=== PATIENT | male | born 1955 | race Asian ===

== ENCOUNTER 2017-06-06 18:24 | Emergency (ER) | payer SELFPAY ==
[~2017-06-06] VITALS: Ht 162.6 cm; Wt 73.3 kg
[2017-06-06 18:26] VITALS: Ht 162.6 cm; Wt 73.3 kg
[2017-06-06] MEDS ORDERED: ACETAMINOPHEN 500 MG TAB PO STA (19:12)
[2017-06-06] MEDS ORDERED: IBUPROFEN 600 MG TAB PO STA (19:12)
--- NOTE | 2017-06-06 19:12 | ERD ---
ER Documentation Chief Complaint Chief Complaint pt bib family with c/o fever and cough , feeling sob for a few days HPI this 61 yr male patient reports that he lives in [facility] and [facility], reports cough for 2 weeks intermitted and tactic fever starting today. pt denies night sweats, blood in sputum or contact with TB. pt has not had flu vaccines, denies hx of pulmonary disease . ROS All systems reviewed and are negative except as per history of present illness. Allergies Allergies: Coded Allergies: No Known Allergy (Unverified , 06/06/17) PMhx/Soc Medical and Surgical Hx: pt denies Medical Hx, pt denies Surgical Hx Hx Alcohol Use: No Hx Substance Use: No Hx Tobacco Use: No Smoking Status: Never smoker Physical Exam Vitals Vital Signs Date Time Temp Pulse Resp B/P Pulse Ox O2 Delivery O2 Flow Rate FiO2 06/06/17 19:53 103.4 100 17 100 Room Air 06/06/17 18:26 104.3 127 24 142/81 95 Physical Exam Const: Well-nourished well-hydrated well-appearing 61-year-old male patient obvious discomfort no acute distress temperature was 104 when triaged, 103 now. Eyes: Normal Conjunctiva, PERRLA, EOMI, no jaundice ENT: Lateral tympanic membranes are translucent, erythemic, without fluid level or bulging. Nasal mucosa is wet, erythemic, turbinates +2 with no mucus or bleeding points, pharynx is pink, uvula midline without shift, rises and falls with pronation, no exudate seen on tonsils, mucous membranes are moist. Neck: Full range of motion..~ No meningismus. Resp: Respirations even and unlabored, patient's oxygen saturation is 95% on room air in triage, 100% now, clear to auscultation bilaterally, loose cough, no egophony Cardio: 1-S2, no S3-S4 regular rate and rhythm, no murmurs Abd: Soft, non tender, non distended. No epigastric tenderness Skin: It is hot to touch no petechiae or rashes Back: No midline or flank tenderness Ext: No cyanosis, or edema Neur: Awake and alert Psych: Normal Mood and Affect Result Diagram: 06/06/17194406/06/171944 Results 24 hrs Laboratory Tests Test 06/06/17 19:45 White Blood Count 5.610^3/ul Red Blood Count 4.9710^6/ul Hemoglobin 15.3g/dl Hematocrit 44.0% Mean Corpuscular Volume 88.5fl Mean Corpuscular Hemoglobin 30.8pg Mean Corpuscular Hemoglobin Concent 34.8g/dl Red Cell Distribution Width 12.8% Platelet Count 72531^3/UL Mean Platelet Volume 10.2fl Neutrophils % 72.1% Lymphocytes % 7.7% Monocytes % 11.8% Eosinophils % 0.0% Basophils % 0.5% Nucleated Red Blood Cells % 0.0/100WBC Neutrophils # 4.010^3/ul Lymphocytes # 0.410^3/ul Monocytes # 0.710^3/ul Eosinophils # 0.010^3/ul Basophils # 0.010^3/ul Nucleated Red Blood Cells # 0.010^3/ul Urine Color YELLOW Urine Clarity CLEAR Urine pH 7.0 Urine Specific [place] 1.025 Urine Ketones 1+mg/dL Urine Nitrite NEGATIVEmg/dL Urine Bilirubin NEGATIVEmg/dL Urine Urobilinogen 2+mg/dL Urine Leukocyte Esterase NEGATIVELeu/ul Urine Hemoglobin NEGATIVEmg/dL Urine Glucose NEGATIVEmg/dL Urine Total Protein NEGATIVEmg/dl Sodium Level 135mmol/L Potassium Level 3.9mmol/L Chloride Level 98mmol/L Carbon Dioxide Level 28mmol/L Anion Gap 13 Blood Urea Nitrogen 12mg/dl Creatinine 0.95mg/dl Glucose Level 130mg/dl Calcium Level 9.2mg/dl Total Bilirubin 1.2mg/dl Direct Bilirubin 0.00mg/dl Indirect Bilirubin 1.2mg/dl Aspartate Amino Transf (AST/SGOT) 50IU/L Alanine Aminotransferase (ALT/SGPT) 66IU/L Alkaline Phosphatase 77IU/L Total Protein 6.7g/dl Albumin 4.3g/dl Globulin 2.40g/dl Albumin/Globulin Ratio 1.79 Lipase 50U/L Current Medications Medications (Trade) Dose Ordered Sig/Jacky Route PRN Reason Start Time Stop Time Status Last Admin Dose Admin Acetaminophen (Tylenol Tab) 1,000 mg ONCE STAT PO 06/06/17 19:12 06/06/17 19:18 DC 06/06/17 19:40 Ibuprofen 600 mg 600 mg ONCE STAT PO 06/06/17 19:12 06/06/17 19:18 DC 06/06/17 19:40 Sodium Chloride (NS) 1,000 ml @ 1,000 mls/hr Q1H ONCE IV 06/06/17 19:30 06/06/17 20:29 DC 06/06/17 19:43 Interpretation text CBC shows no evidence of hemorrhage or infection Chemistry shows no evidence of significant electrolyte abnormalities or renal insufficiency Liver function tests shows no evidence of acute biliary or hepatic dysfunction Lipase shows no evidence of acute pancreatitis Influenza rapid swab negative for evidence of influenza A or B Procedures/MDM PROCEDURE: XR Chest. CLINICAL INDICATION: Cough/fever. TECHNIQUE: PA and lateral chest x-ray. COMPARISON: None available. FINDINGS: The heart is not enlarged. There are multiple surgical clips in the right sided mediastinum. There is calcified atherosclerosis of the aortic arch. There is no acute infiltrate in the lungs. No focal opacification is seen. No pleural effusion. The visualized surrounding osseous structures are unremarkable. IMPRESSION: 1. Unremarkable chest x-rays. 2. Calcified atherosclerosis of the aortic arch. Electronically viewed and signed by .Adam Bowling MD, MD on 06/06/2017 21:47 This 61-year-old male patient presents to emergency department for evaluation of fever that started today, patient reports symptoms include cough with progressive worsening over the last 2 weeks. Body aches, decreased appetite. Patient is here visiting for Thanksgiving is traveling back to [place] [facility], patient reports he lives with his in [facility] half of the year and in the [facility] the remainder, patient reports that he will be traveling on Thursday. Emergency room course includes history and physical exam diagnostic routine laboratory serology negative for any evidence of acute infection, blood loss, to light dysfunction, renal insufficiency, hepatitis, pancreatitis, influenza A, influenza B, chest x-ray is read by radiologist negative for any evidence of consolidation, infiltration, or atelectasis, unremarkable chest x- ray, calcified atherosclerosis of the aortic arch. This finding was discussed with patient at detailed instructed to follow-up with primary care physician once he returns home for complete history and physical exam including fasting lipids. Patient denies that he is on any current medication. Patient is feeling much improved after fever reduction, and saline, plan to discharge patient home with a viral flulike syndrome. Treat symptomatically with ibuprofen, Tylenol, Tessalon Perles given for cough. Patient is safe to return home if afebrile. Patient is stable with no new complaints during ER course, clinically there is no current evidence to suggest meningitis, sepsis, acute abdomen, pneumonia, influenza A, influenza B, acute coronary syndromes, pulmonary embolism or any other emergent condition appearing to require further evaluation or hospitalization. I feel the patient is stable for discharge at this time. I have discussed results, examination findings, the treatment plan with the patient and family present prior to discharge. Indications for emergent reevaluation, side effects of medication were also discussed. All questions were answered. Patient verbalizes understanding and agrees with plan of care. Departure Diagnosis: Primary Impression: Flu syndrome Condition: Good Patient Instructions: Adult Self-Care for Colds Additional Instructions: Thank you for for coming to [facility] for your care today. Please ask your nurse or provider if you have questions about your care today and do not leave until all your questions have been answered. Please use any medications given as directed and follow-up with your doctor (or the doctor you were referred to) in the next 2-3 days. If you do not have a primary care doctor you may follow up at the [facility] (listed below). You may also use motrin and tylenol as needed for fever and/or pain unless instructed otherwise by your provider or nurse. Indications for more urgent follow-up have been discussed, but you may return to the Emergency Department at ANY time for any worrisome or worsening symptoms. If you have abdominal pain, please know that no test or exam you received is perfect and you should follow up within 8 hours for continued pain. If you had any imaging studies today, such as an X-Ray or CT Scan, these studies will be reviewed later by a radiologist. You will be called if there are important findings that were not identified today, so make sure the contact information you provided at registration is correct. If you received any narcotic pain control medicine today, such as Vicodin, Morphine or Dilaudid, your coordination and judgment may be affected for a number of hours. Please do not drive or operate heavy machinery, and you may want someone to assist you at home. If you were given a prescription for narcotic medication, be aware that it is very addictive- use sparingly and only if necessary. CHARO DUKES Jun 06, 2017 19:12
[2017-06-06] MEDS ORDERED: SOD CHLORIDE 0.9% 1,000 ML IV ONE (19:30)
[2017-06-06 19:59] LABS: ABNORMAL IP MESSAGE 1; BASOPHILS % 0.5 % (0.0-2.0); HEMOGLOBIN 15.3 g/dl (14.0-18.0); LYMPHOCYTES # 0.4 10^3/ul (0.8-2.9); LYMPHOCYTES % 7.7 % (15.0-51.0); MEAN CORPUSCULAR HEMOGLOBIN 30.8 pg (29.0-33.0); MEAN CORPUSCULAR HGB CONC 34.8 g/dl (32.0-37.0); MEAN CORPUSCULAR VOLUME 88.5 fl (82.0-101.0); MEAN PLATELET VOLUME 10.2 fl (7.4-10.4); MONOCYTE # 0.7 10^3/ul (0.3-0.9); MONOCYTES % 11.8 % (0.0-11.0); NEUTROPHILS % 72.1 % (39.0-77.0); PLATELET COUNT 177 10^3/UL (140-415); POSITIVE DIFF @See below; RED BLOOD COUNT 4.97 10^6/ul (4.70-6.10); RED CELL DISTRIBUTION WIDTH 12.8 % (11.5-14.5); WHITE BLOOD COUNT 5.6 10^3/ul (4.8-10.8)
[2017-06-06 20:02] LABS: ADD UMIC NO; UR ASCORBIC ACID NEGATIVE (NEGATIVE); UR BILIRUBIN (Dip) NEGATIVE (NEGATIVE); UR BLOOD (Dip) NEGATIVE (NEGATIVE); UR CLARITY CLEAR (CLEAR); UR COLOR YELLOW (YELLOW); UR GLUCOSE (Dip) NEGATIVE (NEGATIVE); UR KETONES (Dip) 1+ mg/dL (NEGATIVE); UR LEUKOCYTE ESTERASE (Dip) NEGATIVE Leu/ul (NEGATIVE); UR NITRITE (Dip) NEGATIVE (NEGATIVE); UR SPECIFIC GRAVITY (Dip) 1.025 (1.003-1.030); UR TOTAL PROTEIN (Dip) NEGATIVE (NEGATIVE); UR UROBILINOGEN (Dip) 2+ mg/dL (NEGATIVE)
[2017-06-06 20:18] LABS: ALBUMIN 4.3 g/dl (3.3-4.9); ALBUMIN/GLOBULIN RATIO 1.79; BILIRUBIN,INDIRECT 1.2 mg/dl (0-1.1); BILIRUBIN,TOTAL 1.2 mg/dl (0.2-1.3); CALCIUM 9.2 mg/dl (8.4-10.2); CREATININE 0.95 mg/dl (0.61-1.24); POTASSIUM 3.9 mmol/L (3.5-5.1); TOTAL PROTEIN 6.7 g/dl (6.1-8.1)
--- NOTE | 2017-06-06 21:48 | RADRPT ---
PROCEDURE: XR Chest. CLINICAL INDICATION: Cough/fever. TECHNIQUE: PA and lateral chest x-ray. COMPARISON: None available. FINDINGS: The heart is not enlarged. There are multiple surgical clips in the right sided mediastinum. There is calcified atherosclerosis of the aortic arch. There is no acute infiltrate in the lungs. No foc al opacification is seen. No pleural effusion. The visualized surrounding osseous structures are u nremarkable. IMPRESSION: 1. Unremarkable chest x-rays. 2. Calcified atherosclerosis of the aortic arch. RPTAT:GG .Adam Bowling MD, MD Date Time Electronically viewed and signed by .Adam Bowling MD, MD on 06/06/2017 21:47 .Y/
[2017-06-06] MEDS ORDERED: ACET500C5 PO (22:49)
[2017-06-06] MEDS ORDERED: IBUP-1542 PO (22:50)
[2017-06-06] MEDS ORDERED: BENZ100C70 PO (22:51)
[2017-06-06 23:15] VITALS: BP 135/80; PULSE 95; RESP 17; TEMP 100
== END 2017-06-06 23:16 | disposition home or self-care (01) ==
LOC: FTE 18:24
DX: R50.9 Fever, unspecified (principal); R05 Cough; R06.02 Shortness of breath
CPT/HCPCS: 36415; 71020; 80053; 81003; 83690; 85025; 87400; 99284; J7030